=== PATIENT | male | born 1940 | race Caucasian/White ===

== ENCOUNTER → 2017-01-18 | Outpatient (CLI) | payer OTHER ==
[~2017-01-18] MED LIST: CLC100 PO; LOSA1TAB38 PO; NRV5 PO; PRED10TA PO
--- NOTE | 2017-01-18 09:02 | DIAGNOSTIC IMAGING REPORT ---
[facility] CLINICAL HISTORY: RENAL CELL CA, CALCULUS OF KIDNEY COMPARISON STUDY: CT scan dated 12/22/2015 FINDINGS: There is no pathologic bowel dilatation. Multiple calcifications project over the left renal shadow the largest of which measures 4 mm. The findings are consistent with left-sided nephrolithiasis. By history the right kidney is surgically absent. Degenerative changes are present within the spine. Pelvic basin calcifications likely represent phleboliths. IMPRESSION: Left-sided nephrolithiasis. Electronically signed by: Anthony Hill M.D. 01/18/2017 9:00 AM Dictated Date/Time: 01/18/2017 8:59 AM
--- NOTE | 2017-01-18 09:14 | DIAGNOSTIC IMAGING REPORT ---
RENAL ULTRASOUND CLINICAL HISTORY: Renal cell carcinoma. COMPARISON STUDY: Renal ultrasound April 14, [address] of the abdomen and pelvis December 22, 2015. TECHNIQUE: Sonography of the kidneys and the urinary bladder was performed. FINDINGS: No abnormalities are identified by sonography within the right nephrectomy bed. The left kidney measures 12.2 x 6 x 6.2 cm. Echogenic foci within the left renal sinus reflect nonobstructing calculi. There is no left hydronephrosis. No left renal masses are identified by sonography. The left ureteral jet was identified. Mild bladder wall irregularity is noted with suspected small diverticula. IMPRESSION: 1. Left-sided nephrolithiasis. No left hydronephrosis. No left renal mass. 2. No abnormalities within the right nephrectomy bed by sonography. Electronically signed by: Abdulkadir Carrera M.D. 01/18/2017 9:13 AM Dictated Date/Time: 01/18/2017 9:02 AM
== END | disposition home or self-care (01) ==
LOC: C.ULTRBC 08:30
PROVIDERS: ATTEND Urology
DX: N20.0 Calculus of kidney (principal); C64.9 Malignant neoplasm of unspecified kidney, except renal pelvis

== ENCOUNTER → 2017-02-06 | Outpatient (CLI) | payer OTHER ==
[2017-02-06 09:44] LABS: HEMATOCRIT 39.3 % (42-52); MEAN CELL VOLUME 95.6 fL (80-100); MEAN CORPUSCULAR HEMOGLOBIN 33.3 pg (25-34); MEAN CORPUSCULAR HGB CONC 34.9 g/dl (32-36); MEAN PLATELET VOLUME 9.3 fL (7.4-10.4); PLATELET COUNT 234 K/uL (130-400); RED BLOOD COUNT 4.11 M/uL (4.7-6.1); WHITE BLOOD COUNT 4.73 K/uL (4.8-10.8)
[2017-02-06 09:48] LABS: URINE APPEARANCE CLEAR (CLEAR); URINE BILIRUBIN NEG (NEG); URINE COLOR YELLOW; URINE EPITHELIAL CELL AUTO 0-5 /lpf (0-5); URINE NITRITE NEG (NEG); URINE SPECIFIC GRAVITY 1.011 (1.000-1.030); UROBILINOGEN NEG (NEG)
[2017-02-06 09:51] LABS: MANUAL MICROSCOPIC REQUIRED? NO; REVIEW REQ? NO
[2017-02-06 09:52] LABS: BLOOD UREA NITROGEN 25 mg/dl (7-18); BUN/CREATININE RATIO 15.6 (10-20); CALCIUM 9.2 mg/dl (8.5-10.1); CARBON DIOXIDE 28 mmol/L (21-32); CHLORIDE 101 mmol/L (98-107); GLUCOSE 97 mg/dl (70-99); SODIUM 135 mmol/L (136-145)
[2017-02-06 09:53] LABS: PHOSPHORUS 2.9 mg/dl (2.5-4.9)
[2017-02-06 10:08] LABS: URINE PROTIEN/CREAT RATIO 0.2 (0-0.2); URINE TOTAL PROTEIN 8.7 mg/dl (0-11.9)
== END | disposition home or self-care (01) ==
LOC: C.LAB1850 07:55
PROVIDERS: ATTEND Internal Medicine Nephrology
DX: I10 Essential (primary) hypertension (principal); C64.9 Malignant neoplasm of unspecified kidney, except renal pelvis; N18.3 Chronic kidney disease, stage 3 (moderate); E87.1 Hypo-osmolality and hyponatremia; E55.9 Vitamin D deficiency, unspecified